=== PATIENT | female | born 1990 | race Caucasian/White ===

== ENCOUNTER 2018-01-30 19:24 | Outpatient (CLI) | END 2018-01-30 23:22 | disposition home or self-care (01) ==

== ENCOUNTER 2018-03-21 10:13 | Outpatient (CLI) | END 2018-03-21 13:40 | disposition home or self-care (01) ==

== ENCOUNTER 2018-04-11 18:37 | Outpatient (CLI) | END 2018-04-11 20:25 | disposition home or self-care (01) ==

== ENCOUNTER 2018-05-21 19:57 | Outpatient (CLI) | END 2018-05-21 22:43 | disposition home or self-care (01) ==

== ENCOUNTER 2018-05-23 20:05 | Inpatient (IN) | END 2018-05-26 14:25 | disposition home or self-care (01) | DRG 807 ==